=== PATIENT | female | born 1940 | race Caucasian/White ===

== ENCOUNTER → 2023-10-26 08:05 | Outpatient (REF) | payer MEDICARE, SELFPAY ==
[2023-10-26 08:44] LABS: % Basophils 0.8 % (0-2); % Eosinophils 5.8 % (0-6); % Immature Granulocytes 0.3 % (0-0.5); % Monocytes 7.5 % (1.7-9.3); % Neutrophils 66.6 % (42.2-75.2); Absolute Basophils 0.1 10^3/uL (0-0.2); Absolute Eosinophils 0.6 10^3/uL (0-0.7); Absolute Lymphocytes 1.8 10^3/uL (1.2-3.4); Absolute Monocytes 0.7 10^3/uL (0.1-0.6); Absolute Neutrophils 6.3 10^3/uL (1.4-6.5); Hematocrit 33.6 % (37.0-47.0); Mean Corp Hgb Conc. 32.7 g/dL (33.0-37.0); Mean Corpuscular Hgb 31.5 pg (27.0-31.0); Mean Corpuscular Volume 96.3 fL (81.0-99.0); Mean Platelet Volume 8.7 fL (7.4-10.4); Nucleated Red Blood Cells % 0 %; Platelet Count 213 10^3/uL (130-400); Red Blood Cell Count 3.49 10^6/uL (4.20-5.40); Red Cell Dist. Width 13.9 % (11.5-14.5); White Blood Cell Count 9.5 10^3/uL (4.8-10.8)
[2023-10-26 10:18] LABS: ALT (SGPT) 31 U/L (0-35); AST (SGOT) 37 U/L (14-36); Albumin 3.7 g/dl (3.5-5.0); Alkaline Phosphatase 78 U/L (38-126); Blood Urea Nitrogen 32 mg/dl (7-17); Calcium 10.1 mg/dl (8.4-10.2); Carbon Dioxide 28 mmol/L (22-30); Chloride 108 mmol/L (98-107); Glucose 90 mg/dl (70-99); HDL Cholesterol 60 mg/dl; LDL Cholesterol, Calculated 51 mg/dl; Potassium 5.5 mmol/L (3.5-5.1); Sodium 140 mmol/L (135-145); Total Bilirubin 0.4 mg/dl (0.2-1.3); Total Cholesterol 139 mg/dl (50-199); Total Protein 6.4 g/dl (6.3-8.2); Triglyceride 141 mg/dl (10-149); Very Low Density Lipoprotein 28 mg/dl (0-30); eGFR 50.48
[2023-10-26 10:41] LABS: Glycohemoglobin (HgbA1c) 5.5 % (4.0-5.6)
[2023-10-26 10:46] LABS: TSH 1.58 uIU/ml (0.47-4.68)
== END ==
LOC: REG 08:05
PROVIDERS: ATTENDING PHYSICIAN Nurse Practitioner Pediatrics
DX: F33.1 Major depressive disorder, recurrent, moderate (principal)
CPT/HCPCS: 36415; 80053; 80061; 83036; 84436; 84443; 85025

== ENCOUNTER → 2023-11-16 15:07 | Outpatient (REF) | payer MEDICARE, SELFPAY ==
[2023-11-16 16:22] LABS: ALT (SGPT) 25 U/L (0-35); AST (SGOT) 33 U/L (14-36); Albumin 3.6 g/dl (3.5-5.0); Alkaline Phosphatase 76 U/L (38-126); Blood Urea Nitrogen 43 mg/dl (7-17); Calcium 9.4 mg/dl (8.4-10.2); Carbon Dioxide 26 mmol/L (22-30); Chloride 107 mmol/L (98-107); Glucose 91 mg/dl (70-99); Potassium 4.7 mmol/L (3.5-5.1); Sodium 142 mmol/L (135-145); Total Bilirubin 0.3 mg/dl (0.2-1.3); Total Protein 6.5 g/dl (6.3-8.2)
[2023-11-16 16:26] LABS: NT-proBNP 254 pg/ml
== END ==
LOC: REG 15:07
DX: I48.0 Paroxysmal atrial fibrillation (principal); R60.9 Edema, unspecified
CPT/HCPCS: 36415; 80053; 83880